=== PATIENT | female | born 1950 | race Caucasian/White ===

== ENCOUNTER 2016-10-11 09:52 | Observation (INO) | payer OTHER, MEDICAID ==
[~2016-10-11] VITALS: Ht 166.4 cm; Wt 86.7 kg
[~2016-10-11 09:52] MED LIST: CYCL-36 PO; FENT50DI TD; HYDR10TA16 PO; LEVO.05 PO; TAMS0.4C4 PO
[2016-10-11 09:55] VITALS: BP 151/91; PULSE 81; RESP 16; TEMP 97.5; O2SAT 95
[2016-10-11] MEDS ORDERED: SODIUM CHLOR 0.9% 1000 ML INJ 1,000 ML IV SCH (10:12)
[2016-10-11 10:15] VITALS: O2SAT 96
[2016-10-11] MEDS ORDERED: ONDANSETRON HCL 4 MG/2 ML VIAL IVP ONE (10:15)
[2016-10-11] MEDS ORDERED: PANTOPRAZOLE INJ 80 MG in SODIUM CHLORIDE 0.9% INJ 35 ML IV ONE (10:15)
[2016-10-11] MEDS ORDERED: SODIUM CHLORIDE 0.9% FLUSH 10 ML FLUSH IV FLUSH PRN ×2 (10:15→12:15)
[2016-10-11] MEDS ORDERED: PROP40TA3 PO (10:21)
[2016-10-11] MEDS ORDERED: CITA20TA4 PO (10:21)
[2016-10-11] MEDS ORDERED: CYCL1TAB29 PO (10:21)
[2016-10-11] MEDS ORDERED: PROM12.54 PO (10:21)
[2016-10-11] MEDS ORDERED: OXYC-433 PO (10:21)
[2016-10-11] MEDS ORDERED: ZETI10TA5 PO (10:21)
[2016-10-11] MEDS ORDERED: ZOCO40TA PO (10:21)
[2016-10-11] MEDS ORDERED: TRAZ50TA12 PO (10:21)
[2016-10-11] MEDS ORDERED: LEVO88TA2 PO (10:21)
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
[2016-10-11 10:44] LABS: AUTOMATED NEUTROPHIL # 8.5 TH/MM3 (1.8-7.7); BASOPHIL % 0.4 % (0.0-2.0); EOSINOPHIL # 0.1 TH/MM3 (0-0.4); EOSINOPHIL % 0.8 % (0.0-4.0); HEMATOCRIT 44.8 % (35.0-46.0); LYMPH % 12.7 % (9.0-44.0); LYMPHOCYTE # 1.4 TH/MM3 (1.0-4.8); MEAN CELL VOLUME 93.1 FL (80.0-100.0); MEAN CORPUSCULAR HEMOGLOBIN 31.3 PG (27.0-34.0); MEAN CORPUSCULAR HGB CONC 33.6 % (32.0-36.0); MONO % 7.5 % (0.0-8.0); NEUT % 78.6 % (16.0-70.0); PLATELET COUNT 318 TH/MM3 (150-450); RED BLOOD COUNT 4.81 MIL/MM3 (4.00-5.30); RED CELL DISTRIBUTION WIDTH 11.6 % (11.6-17.2); WHITE BLOOD COUNT 10.8 TH/MM3 (4.0-11.0)
[2016-10-11 10:45] LABS: HEMO FLAGS AUTO DIFF
[2016-10-11 10:52] LABS: CHLORIDE 105 MEQ/L (98-107); POTASSIUM 3.3 MEQ/L (3.5-5.1); SODIUM (NA) 141 MEQ/L (136-145)
[2016-10-11 10:56] LABS: BLOOD UREA NITROGEN 13 MG/DL (7-18)
[2016-10-11 10:57] LABS: APTT (PATIENT) 25.4 SEC (24.3-30.1); INTERNATIONAL NORMALIZED RATIO 0.9 RATIO; PROTHROMBIN TIME - PATIENT 10.1 SEC (9.8-11.6)
--- NOTE | 2016-10-11 10:57 | RADRPT ---
EXAM DATE/TIME: 10/11/2016 10:22 [facility] COMPARISON: No previous studies available for comparison. INDICATIONS : Vomiting, fever, mid upper abdomen,lower chest area pain, black stools MEDICAL HISTORY : Carcinoma, breast. SURGICAL HISTORY : lumpectomy ENCOUNTER: Initial ACUITY: 4 - 6 days PAIN SCORE: 10/10 LOCATION: Bilateral chest FINDINGS: The lungs are clear without infiltrate, nodule, or mass. There is no appreciable pleural effusion fo r technique. Heart and mediastinum are unremarkable. CONCLUSION: No acute cardiopulmonary disease. Emanuel Garcia MD on October 11, 2016 at 10:55 Board Certified Radiologist. This report was verified electronically.
[2016-10-11 10:58] LABS: ALT (GPT) 34 U/L (10-53)
[2016-10-11 10:59] LABS: AST (GOT) 22 U/L (15-37); GLOMERULAR FILTRATION RATE 71 ML/MIN (>89)
[2016-10-11 11:00] LABS: TOTAL BILIRUBIN ADULT 0.3 MG/DL (0.2-1.0)
[2016-10-11 11:01] LABS: ALKALINE PHOSPHATASE 84 U/L (45-117)
[2016-10-11 11:02] LABS: ANION GAP 9 MEQ/L (5-15); BICARBONATE 27.2 MEQ/L (21.0-32.0)
[2016-10-11 11:10] LABS: CREATINE KINASE 54 U/L (26-192)
--- NOTE | 2016-10-11 11:12 | RADRPT ---
EXAM DATE/TIME: 10/11/2016 10:44 [facility] COMPARISON: CT ABDOMEN & PELVIS W/O CONTRAST, January 28, 2014, 1:06. INDICATIONS : Black tarry stool and vomiting. ORAL CONTRAST: No oral contrast ingested. RADIATION DOSE: 19.98 CTDIvol (mGy) MEDICAL HISTORY : Hypertension. Chronic obstructive pulmonary disease. Anticoagulant therapy. SURGICAL HISTORY : Appendectomy. Hysterectomy. section. ENCOUNTER: Initial ACUITY: 4 - 6 days PAIN SCALE: 0/10 LOCATION: abdomen/pelvis TECHNIQUE: Volumetric scanning of the abdomen and pelvis was performed. Using automated exposure control and ad justment of the mA and/or kV according to patient size, radiation dose was kept as low as reasonably achievable to obtain optimal diagnostic quality images. DICOM format image data is available electro nically for review and comparison. FINDINGS: CT Abdomen: The spleen, pancreas, kidneys, adrenals are unremarkable. There is no evidence for any ap preciable pathological adenopathy, free fluid, or bowel obstruction. Tiny pericardial effusion is se en maximum thickness of 3 mm. The liver is extensively fatty without focal lesions or technique. Slig ht atelectasis and/or infiltrate is seen in right middle lobe and lingula. CT pelvis: There is no evidence for mass, abscess formation, or any significant adenopathy within the pelvis. Previously seen left UVJ stone is no longer seen. There are scattered diverticuli mainly in the sigmoid colon without definite signs of diverticulitis. CONCLUSION: Extensive fatty liver and slight atelectasis and/or infiltrate in right middle lobe a nd lingula . Emanuel Garcia MD on October 11, 2016 at 11:05 Board Certified Radiologist. This report was verified electronically.
[2016-10-11 11:14] LABS: SCAN/DIFF AUTO DIFF CONFIRMED
[2016-10-11] MEDS: PANTOPRAZOLE INJ 80 MG in SODIUM CHLORIDE 0.9% INJ 100 ML IV SCH (11:18)
[2016-10-11] MEDS ORDERED: HYDROmorphone HCL PF 1 MG/ML VIAL IV PUSH ONE (11:45)
[2016-10-11] MEDS ORDERED: LEVOFLOXACIN 750 MG PREMIX INJ 150 ML IV ONE (11:45)
[2016-10-11 12:11] VITALS: BP 144/74; PULSE 72; RESP 16; O2SAT 96
[2016-10-11] MEDS ORDERED: BISACODYL 10 MG SUPP RECTAL PRN (12:15)
[2016-10-11] MEDS ORDERED: NALOXONE HCL 0.4 MG/ML AMP IV PRN (12:15)
[2016-10-11] MEDS ORDERED: ONDANSETRON HCL 4 MG/2 ML VIAL IVP PRN (12:15)
[2016-10-11] MEDS ORDERED: MAGNESIUM HYDROXIDE SUSP 30 ML CUP PO PRN (12:15)
[2016-10-11] MEDS ORDERED: LACTULOSE SYRUP 20 GM/30 ML CUP PO PRN (12:15)
[2016-10-11] MEDS ORDERED: SENNOSIDES 8.6 MG TAB PO PRN (12:15)
[2016-10-11] MEDS: SODIUM CHLOR 0.9% 1000 ML INJ 1,000 ML IV SCH (12:57)
[2016-10-11 13:30] VITALS: BP_SYST 105; BP_SYST 113; BP_SYST 90; BP_DIAS 73; BP_DIAS 77; BP_DIAS 79; PULSE 69; RESP 19; TEMP 97.4; O2SAT 95
--- NOTE | 2016-10-11 13:37 | HHI.HP ---
[facility] Service [facility] Primary Care Physician Unknown Admission Diagnosis GI Bleed, Pneumonia Diagnoses: (1) Abdominal pain Diagnosis: Principal (2) Nausea & vomiting Diagnosis: Principal (3) Diarrhea in adult patient Diagnosis: Principal (4) Melena Diagnosis: Principal Chief Complaint: Nausea, vomiting, diarrhea Travel History International Travel<30 Days: No Contact w/Intl Traveler <30 Da: No Traveled to Known Affected Are: No History of Present Illness Written by Paolo Hall, acting as scribe for Dr. Scott on 10/11/16 at 13: 23. 66-year-old female with known history of hypertension, hyperlipidemia , coronary artery disease, history myocardial infarction, chronic obstructive pulmonary disease, chronic tobacco use, fibromyalgia, chronic pain, tremors, hypothyroidism, history of breast cancer who presented to hospital because of abdominal pain, nausea, vomiting, diarrhea and dark stools. Patient states that her symptoms started 5 days ago when she started developing abdominal pain located in the epigastric region and radiating bilaterally to the bilateral upper right and left quadrants. She indicates that she is started developing some swelling in her left upper abdomen that progressively got worse and did not go away. She started experiencing nausea, vomiting and diarrhea with black water. The patient took 2 Pepto-Bismol tablets that day and she did not improve. She states that every time that she drink anything or try to eat anything she had nausea vomiting. Every time she drinks something it come right back up. She denies any dysphagia, globus sensation or difficulty swallowing. Patient denies any recent antibiotic use, sick exposures. The patient does have history of fibromyalgia and chronic pain in which she indicates that she has been able to take her pain medication on a regular basis. The pain medication has not made her abdominal pain subsided. Approximately 34 months ago she did go to Dr. Jacob and had colonoscopy done where they removed approximately 10 polyps. She goes every 2 years for polypectomies. Patient does take aspirin on a daily basis. Patient was brought here by her family, she states that she really did not want to come to the hospital. However patient did have Hemoccult-positive stool and is indicated by family at the patient was very weak and was having difficulty ambulating. Because of those reasons it was recommended by the ER physician the patient be observed in the hospital for further recommendations management. Review of Systems Constitutional: COMPLAINS OF: Weight gain Gastrointestinal: COMPLAINS OF: Black stools, Diarrhea, Nausea, Vomiting Past Family Social History Past Medical History Hypertension Hyperlipidemia Hypothyroidism Chronic obstructive pulmonary disease Chronic tobacco use Fibromyalgia History of breast cancer History of CVA with left-sided weakness History of myocardial infarction Left-sided tremors Past Surgical History Breast lumpectomy/biopsy Cervical spine surgery Hysterectomy Appendectomy Cardiac catheterization 2005 with angiographically normal coronary arteries Reported Medications Reported Meds & Active Scripts Active Reported Levothyroxine (Levothyroxine Sodium) 88 Mcg Tab 88 Mcg PO DAILY Propranolol (Propranolol HCl) 40 Mg Tab 40 Mg PO Q12HR Zocor (Simvastatin) 40 Mg Tab 40 Mg PO DAILY Trazodone (Trazodone HCl) 50 Mg Tab 50 Mg PO HS Zetia (Ezetimibe) 10 Mg Tab 10 Mg PO DAILY Oxycodone-Acetaminophen 10-325 mg Tab 1 Tab PO Q6H PRN Flexeril (Cyclobenzaprine HCl) 10 Mg Tab 10 Mg PO BID Promethazine (Promethazine HCl) 12.5 Mg Tab 10 Mg PO Q6H PRN Citalopram (Citalopram Hydrobromide) 20 Mg Tab 20 Mg PO DAILY Allergies: Coded Allergies: Tetanus Toxoid (Verified Allergy, Severe, PT STATES SHE HAS "CONVULSIONS" , 10/11/16) Codeine (Verified Allergy, Mild, 10/11/16) Morphine (Verified Allergy, Mild, 10/11/16) Naprosyn (Verified Allergy, Mild, 10/11/16) Penicillin (Verified Allergy, Mild, 10/11/16) Family History Reviewed and significant for father having heart disease, requiring bypass surgery, first heart attack was in his age 70s he lived until 93 years old. Mother with breast cancer Social History Patient smokes a half a pack a cigarettes a day she has been smoking for 46 years. She drinks alcohol rarely. Denies any illicit drugs Physical Exam Vital Signs Vital Signs Date Time Temp Pulse Resp B/P Pulse Ox O2 Delivery O2 Flow Rate FiO2 10/11/16 12:11 72 16 144/74 96 Room Air 10/11/16 10:15 96 Room Air 10/11/16 09:55 97.5 81 16 151/91 95 Physical Exam GENERAL: Well-developed, well-nourished, in no acute distress. alert and orientated HEENT: Head is normocephalic without any lesions or masses noted. Facial features are symmetric. Eyes: Pupils equal round reactive to light. Extraocular muscles are intact. Conjunctivae were clear. Oropharyngeal: Pharynx without any erythema edema. Tongue is midline without deviation. Buccal mucosa is moist without any masses or lesions NECK: Supple without any masses. Trachea midline no deviation. No JVD, no bruits are appreciated CARDIAC: Regular rhythm, regular rate. S1/S2 are heard. No murmurs gallops or rubs. LUNGS: Clear to auscultation bilaterally. No wheeze, rhonchi or rales. No use of accessory muscles on inspiration or expiration. ABDOMEN: Soft, nontender. Nondistended. Bowel sounds heard in all 4 quadrants. No organomegaly or masses. Negative rebound, negative guarding EXTREMITIES: No edema, pulses are equal bilaterally. No cyanosis or clubbing NEUROLOGY: Mood and affect appear appropriate. Cranial nerves II through XII grossly intact. Muscle strength 5/5 in right upper and lower extremities, 3/5 in the left upper extremity.. Deep tendon reflexes are 2+ in upper and lower extremities bilaterally. Laboratory Laboratory Tests Test 10/11/16 10/11/16 10:35 12:45 White Blood Count 10.8 Red Blood Count 4.81 Hemoglobin 15.1 13.9 Hematocrit 44.8 Mean Corpuscular Volume 93.1 Mean Corpuscular Hemoglobin 31.3 Mean Corpuscular Hemoglobin 33.6 Concent Red Cell Distribution Width 11.6 Platelet Count 318 Mean Platelet Volume 8.9 Neutrophils (%) (Auto) 78.6 Lymphocytes (%) (Auto) 12.7 Monocytes (%) (Auto) 7.5 Eosinophils (%) (Auto) 0.8 Basophils (%) (Auto) 0.4 Neutrophils # (Auto) 8.5 Lymphocytes # (Auto) 1.4 Monocytes # (Auto) 0.8 Eosinophils # (Auto) 0.1 Basophils # (Auto) 0.0 CBC Comment AUTO DIFF Differential Comment AUTO DIFF CONFIRMED Prothrombin Time 10.1 Prothromb Time International 0.9 Ratio Activated Partial 25.4 Thromboplast Time Sodium Level 141 Potassium Level 3.3 Chloride Level 105 Carbon Dioxide Level 27.2 Anion Gap 9 Blood Urea Nitrogen 13 Creatinine 0.80 Estimat Glomerular Filtration 71 Rate Random Glucose 122 Calcium Level 9.1 Total Bilirubin 0.3 Aspartate Amino Transf 22 (AST/SGOT) Alanine Aminotransferase 34 (ALT/SGPT) Alkaline Phosphatase 84 Total Creatine Kinase 54 Troponin I LESS THAN 0.02 Total Protein 7.7 Albumin 3.8 Lipase 104 Blood Type A POSITIVE Antibody Screen NEGATIVE Blood Bank Comment Lactic Acid Level 0.9 Result Diagram: 10/11/16 1245 10/11/16 1035 Imaging Last Impressions Chest X-Ray 10/11/16 1012 Signed Impressions: Service Date/Time: Tuesday, October 11, 2016 10:22 - CONCLUSION: No acute cardiopulmonary disease. Emanuel Garcia MD Abdomen/Pelvis CT 10/11/16 1012 Signed Impressions: Service Date/Time: Tuesday, October 11, 2016 10:44 - CONCLUSION: Extensive fatty liver and slight atelectasis and/or infiltrate in right middle lobe and lingula . Emanuel Garcia MD Assessment and Plan Assessment and Plan //Abdominal pain with nausea, vomiting, diarrhea, melenic stool Heme positive stool in emergency department, Continue monitor hemoglobin and hematocrit Transfuse if hemoglobin below 8.0 Continue Protonix Continue Zofran Consult gastroenterology for recommendations //Chronic obstructive pulmonary disease Patient still smokes a half a pack a cigarettes a day Chest x-rays clear, abdominal CT indicates right lung atelectasis Counseled on cessation O2 supplementation maintain O2 sats greater than 92% Duo nebs as needed Incentive spirometry //Hypertension, hyperlipidemia Vital signs stable at this time Continue home medications //Hypothyroidism Check TSH Continue replacement therapy //Chronic pain, fibromyalgia Continue pain control //DVT prevention Sequential compression devices Avoid chemical prophylaxis secondary to heme positive stool Code Status Full code Discussed Condition With patient, ED physician. This note was transcribed by scribe [Paolo Hall]. I, Dr. Jhon Scott personally performed the history, physical exam, and medical decision making; and confirmed the accuracy of the information in the transcribed note. Authenticated by Dr. Jhon Scott on 10/11/16 at 15:51. Problem Qualifiers (1) Abdominal pain: Qualified Code: R10.13 - Epigastric pain (2) Nausea & vomiting: Qualified Code: R11.2 - Intractable vomiting with nausea, unspecified vomiting type Paolo Hall Oct 11, 2016 13:37 Jhon Scott MD Oct 11, 2016 15:52
[2016-10-11] MEDS ORDERED: RESP: ALBUTEROL 2.5 MG/IPRATROPIUM 0.5 MG NEB (PRN) NEB (13:45)
[2016-10-11 15:51] LABS: BLOOD, URINE NEG (NEG); GLUCOSE,URINE NEG (NEG); KETONE, URINE NEG (NEG); NITRITE,URINE NEG (NEG)
[2016-10-11 16:00] VITALS: BP 141/82; PULSE 74; RESP 19; TEMP 97.1; O2SAT 93
[2016-10-11] MEDS ORDERED: PEG (High)/E-LYTE SOLN 4000 ML BTL PO ONE (16:00)
[2016-10-11 16:09] LABS: METHOD OF COLLECTION CLEAN CATCH; URINE COLOR YELLOW (YELLW/STRAW)
[2016-10-11 16:11] LABS: BACTERIA, URINE MOD /hpf; COMMENT (UR) CULTURE INDICATED; COMMENT2 (UR) MUCOUS PRESENT; CULTURE IF INDICATED CULTURE INDICATED
--- NOTE | 2016-10-11 17:23 | PD.CONS ---
HPI History of Present Illness This is a 66 year old female who presented to the ER with abdominal pain, nausea , vomiting, diarrhea, and dark stools. Patient states her current symptoms have been present for 5 days. States she took Tylenol (2 tablets) approximately a week ago due to a headache, and states she has had abdominal discomfort since. Reports abdominal pain is located at epigastric area with radiation bilaterally to upper right and left quadrants. She states she is having swelling at her left upper quadrant. Patient did take 2 Pepto-Bismol tablets with no relief in her symptoms. Has nausea and vomiting with oral intake. Denies hematemesis. Followed by Dr. Jacob (GI). Had colonoscopy 3-4 months ago, removed approx 10 polyps, benign per patient. Never had EGD. States she goes every 2 years for polypectomies. Medical history significant for HTN, HLD, CAD, history of DE, COPD, chronic tobacco use, fibromyalgia, chronic pain, tremors, hypothyroidism, and history of breast cancer. Takes aspirin daily. Hemoccult positive stool in ER. (Sepideh Gibbs) PFSH Past Medical History Hypertension Hyperlipidemia Hypothyroidism Chronic obstructive pulmonary disease Chronic tobacco use Fibromyalgia History of breast cancer History of CVA with left-sided weakness History of myocardial infarction Left-sided tremors Past Surgical History Breast lumpectomy/biopsy Cervical spine surgery Hysterectomy Appendectomy Cardiac catheterization 2005 with angiographically normal coronary arteries ( Sepideh Gibbs) Coded Allergies: Tetanus Toxoid (Verified Allergy, Severe, PT STATES SHE HAS "CONVULSIONS" , 10/11/16) Codeine (Verified Allergy, Mild, 10/11/16) Morphine (Verified Allergy, Mild, 10/11/16) Naprosyn (Verified Allergy, Mild, 10/11/16) Penicillin (Verified Allergy, Mild, 10/11/16) Medications Current Medications Medications (Trade) Dose Ordered Sig/Eulalio Route PRN Reason Start Time Stop Time Status Last Admin Dose Admin Pantoprazole Sodium 80 mg/ Sodium Chloride 100 ml @ 10 mls/hr CONTINUOUS IV 10/11/16 10:15 10/11/16 11:18 Sodium Chloride (NS 1000 ml Inj) 1,000 ml @ 100 mls/hr Q10H IV 10/11/16 12:01 10/11/16 12:57 Sodium Chloride (NS Flush) 2 ml UNSCH PRN IV FLUSH FLUSH AFTER USING IV ACCESS 10/11/16 12:15 Sodium Chloride (NS Flush) 2 ml BID IV FLUSH 10/11/16 21:00 Ondansetron HCl (Zofran Inj) 4 mg Q6H PRN IVP NAUSEA OR VOMITING 10/11/16 12:15 10/11/16 15:14 Naloxone HCl (Narcan Inj) 0.4 mg UNSCH PRN IV SEE LABEL COMMENTS 10/11/16 12:15 Senna/Docusate Sodium (Shana-Colace) 1 tab BID PO 10/11/16 21:00 Magnesium Hydroxide (Milk Of Magnesia Liq) 30 ml Q12H PRN PO MILD - MODERATE CONSTIPATION 10/11/16 12:15 Sennosides (Senokot) 17.2 mg Q12H PRN PO MODERATE - SEVERE CONSTIPATION 10/11/16 12:15 Bisacodyl (Dulcolax Supp) 10 mg DAILY PRN RECTAL SEVERE CONSITIPATION 10/11/16 12:15 Lactulose (Lactulose Liq) 30 ml DAILY PRN PO SEVERE CONSITIPATION 10/11/16 12:15 Citalopram Hydrobromide (CeleXA) 20 mg DAILY PO 10/12/16 09:00 Levothyroxine Sodium (Synthroid) 88 mcg DAILY@06 PO 10/12/16 06:00 Propranolol HCl (Inderal) 40 mg Q12HR PO 10/11/16 21:00 Trazodone HCl (Desyrel) 50 mg HS PO 10/11/16 21:00 Pravastatin Sodium (Pravachol) 80 mg DAILY PO 10/12/16 09:00 Family History Father, heart disease, bypass surgery, first heart attack at 70s Mother, breast cancer Social History Tobacco, 1/2 PPD x 46 years ETOH, rare Illicit Drugs, denies (Sepideh Gibbs) Review of Systems Constitutional: COMPLAINS OF: Change in appetite, DENIES: Diaphoretic episodes , Fatigue, Fever, Weight gain, Weight loss, Chills, Dizziness, Night Sweats Endocrine: DENIES: Polydipsia, Polyuria Eyes: DENIES: Blurred vision, Photosensitivity, Double Vision Ears, nose, mouth, throat: DENIES: Hearing loss, Vertigo, Oral lesions, Throat pain, Hoarseness Respiratory: DENIES: Cough, Wheezing, Hemoptysis, Sputum production, Shortness of breath Cardiovascular: DENIES: Chest pain, Palpitations, Syncope, Lower Extremity Edema, Orthopnea, Claudication Gastrointestinal: COMPLAINS OF: Abdominal pain, Black stools, Diarrhea, Nausea , Vomiting, Swelling of Abdomen, DENIES: Bloody stools, Constipation, Difficulty Swallowing, Anorexia, Odynophagia, Heartburn, Hematemesis Genitourinary: DENIES: Urinary frequency, Urinary incontinence, Urgency, Hematuria, Dysuria, Nocturia Musculoskeletal: DENIES: Joint pain, Muscle aches, Stiffness, Joint Swelling, Back pain, Neck pain Integumentary: DENIES: Abnormal pigmentation, Nail changes, Pruritus, Rash, Jaundice Hematologic/lymphatic: DENIES: Bruising, Lymphadenopathy Immunologic/allergic: DENIES: Eczema, Urticaria Neurologic: DENIES: Abnormal gait, Headache, Localized weakness, Paresthesias Psychiatric: DENIES: Anxiety, Confusion, Mood changes, Depression, Agitation, Suicidal Ideation (Sepideh Gibbs) GI Exam Vitals I&O Vital Signs Date Time Temp Pulse Resp B/P Pulse Ox O2 Delivery O2 Flow Rate FiO2 10/11/16 16:00 97.1 74 19 141/82 93 10/11/16 13:30 97.4 69 19 105/77 95 113/79 90/73 10/11/16 12:11 72 16 144/74 96 Room Air 10/11/16 10:15 96 Room Air 10/11/16 09:55 97.5 81 16 151/91 95 Imaging Last Impressions Chest X-Ray 10/11/16 1012 Signed Impressions: Service Date/Time: Tuesday, October 11, 2016 10:22 - CONCLUSION: No acute cardiopulmonary disease. Emanuel Garcia MD Abdomen/Pelvis CT 10/11/16 1012 Signed Impressions: Service Date/Time: Tuesday, October 11, 2016 10:44 - CONCLUSION: Extensive fatty liver and slight atelectasis and/or infiltrate in right middle lobe and lingula . Emanuel Garcia MD Laboratory Test 10/11/16 10/11/16 10/11/16 10/11/16 10:35 12:45 13:37 15:15 White Blood Count 10.8 TH/MM3 Red Blood Count 4.81 MIL/MM3 Hemoglobin 15.1 GM/DL 13.9 GM/DL Hematocrit 44.8 % Mean Corpuscular Volume 93.1 FL Mean Corpuscular Hemoglobin 31.3 PG Mean Corpuscular Hemoglobin 33.6 % Concent Red Cell Distribution Width 11.6 % Platelet Count 318 TH/MM3 Mean Platelet Volume 8.9 FL Neutrophils (%) (Auto) 78.6 % Lymphocytes (%) (Auto) 12.7 % Monocytes (%) (Auto) 7.5 % Eosinophils (%) (Auto) 0.8 % Basophils (%) (Auto) 0.4 % Neutrophils # (Auto) 8.5 TH/MM3 Lymphocytes # (Auto) 1.4 TH/MM3 Monocytes # (Auto) 0.8 TH/MM3 Eosinophils # (Auto) 0.1 TH/MM3 Basophils # (Auto) 0.0 TH/MM3 CBC Comment AUTO DIFF Differential Comment AUTO DIFF CONFIRMED Prothrombin Time 10.1 SEC Prothromb Time International 0.9 RATIO Ratio Activated Partial 25.4 SEC Thromboplast Time Sodium Level 141 MEQ/L Potassium Level 3.3 MEQ/L Chloride Level 105 MEQ/L Carbon Dioxide Level 27.2 MEQ/L Anion Gap 9 MEQ/L Blood Urea Nitrogen 13 MG/DL Creatinine 0.80 MG/DL Estimat Glomerular Filtration 71 ML/MIN Rate Random Glucose 122 MG/DL Calcium Level 9.1 MG/DL Total Bilirubin 0.3 MG/DL Aspartate Amino Transf 22 U/L (AST/SGOT) Alanine Aminotransferase 34 U/L (ALT/SGPT) Alkaline Phosphatase 84 U/L Total Creatine Kinase 54 U/L Troponin I LESS THAN 0.02 NG/ML Total Protein 7.7 GM/DL Albumin 3.8 GM/DL Lipase 104 U/L Blood Type A POSITIVE Antibody Screen NEGATIVE Blood Bank Comment Lactic Acid Level 0.9 mmol/L Thyroid Stimulating Hormone 2.430 uIU/ML 3rd Gen Urine Collection Type CLEAN CATCH Urine Color YELLOW Urine Turbidity MOD Urine pH 6.0 Urine Specific [place] 1.032 Urine Protein TRACE mg/dL Urine Glucose (UA) NEG mg/dL Urine Ketones NEG mg/dL Urine Occult Blood NEG Urine Nitrite NEG Urine Bilirubin NEG Urine Leukocyte Esterase NEG Urine WBC 3-5 /hpf Urine Squamous Epithelial 6-8 /hpf Cells Urine Bacteria MOD /hpf Microscopic Urinalysis Comment CULTURE INDICATED Urine Collection Time 1515 Date/Time Procedure Status Source Growth 7/23/17 15:15 Urine Culture Received Urine Clean Catch Pending Physical Examination HEENT: PERRLA; normocephalic; atraumatic; no jaundice. NECK: Neck is supple, no JVD, no lymphadenopathy. CHEST: CTA CARDIAC: RRR ABDOMEN: Soft, nondistended, tender at epigastric region and LUQ; no hepatosplenomegaly; bowel sounds x 4 quadrants EXTREMITIES: No clubbing, cyanosis, or edema. SKIN: Normal; no rash; no jaundice. DENTAL HYGIENE ADMINISTRATIVE ASSISTANT: No focal deficits; alert and oriented times three. (Sepideh Gibbs) Assessment and Plan Plan ASSESSMENT GIB, Hemoccult positive stools. HH stable, 15.1/44.8 Abdominal pain with nausea, vomiting, diarrhea, melenic stool, HH stable. Heme positive stool. Never had EGD. Colonoscopy 3-[address] Jacob, removed 10 polyps, benign per patient. Protonix. Zofran. Abdomen/ Pelvis CT 10/11/16--Extensive fatty liver and slight atelectasis and/or infiltrate in right middle lobe and lingula Chronic obstructive pulmonary disease, smokes a 1/2 PPD. Chest X-Ray 10/11/16-- No acute cardiopulmonary disease. Abdomen/Pelvis CT as above. PLAN -EGD/Colonoscopy -Obtain consents -Clear liquid diet -NPO at midnight -Continue Protonix -Monitor HH, transfuse as necessary -Anti emetics -Supportive care -Further recommendations to follow based on results above Patient seen and examined by Dr. Thomas and myself and this note is written on her behalf (Sepideh Gibbs) Physician Comments seen, examined agree with above (Ingris Thomas MD) Sepideh Gibbs Oct 11, 2016 17:23 Ingris Thomas MD Oct 11, 2016 18:34
--- NOTE | 2016-10-11 18:30 | EKG ---
Date Performed: 10/11/2016 Time Performed: 10:28:25 PTAGE: 66 years EKG: Sinus rhythm ST DEVIATION AND MODERATE T-WAVE ABNORMALITY, CONSIDER ANTERIOR ISCHEMIA ABNORMAL ECG PREVIOUS TRACING : 01/27/2014 22.53 Compared to prior tracing no significant change DOCTOR: Gordo Hernandez Interpretating Date/Time 10/11/2016 18:29:49
[2016-10-11 20:15] VITALS: BP_SYST 130; BP_SYST 134; BP_SYST 162; BP_DIAS 100; BP_DIAS 85; BP_DIAS 92; PULSE 88; RESP 18; TEMP 97.2; O2SAT 94
[2016-10-11] MEDS: traZODone HCL 50 MG TAB PO SCH (21:00)
[2016-10-11] MEDS: DOCUSATE SODIUM 50 MG/SENNA 8.6 MG TAB PO SCH (21:00)
[2016-10-11] MEDS: SODIUM CHLORIDE 0.9% FLUSH 10 ML FLUSH IV FLUSH SCH (23:05)
[2016-10-11] MEDS: PROPRANOLOL HCL 40 MG TAB PO SCH (23:05)
[2016-10-12 00:15] VITALS: BP 125/73; PULSE 67; RESP 20; TEMP 98.1; O2SAT 96
[2016-10-12] MEDS: SODIUM CHLOR 0.9% 1000 ML INJ 1,000 ML IV SCH ×3 (01:27→17:01)
[2016-10-12] MEDS ORDERED: METOPROLOL TARTRATE 25 MG TAB PO PRN (04:00)
[2016-10-12] MEDS ORDERED: LACTATED RINGER'S 1000 ML IV PRN (04:00)
[2016-10-12] MEDS: PANTOPRAZOLE INJ 80 MG in SODIUM CHLORIDE 0.9% INJ 100 ML IV SCH ×2 (04:37→18:14)
[2016-10-12 06:10] VITALS: BP 142/87; PULSE 60; RESP 20; TEMP 96.4; O2SAT 94
[2016-10-12] MEDS: LEVOTHYROXINE SODIUM 88 MCG TAB PO SCH (06:12)
[2016-10-12] MEDS: PROPRANOLOL HCL 40 MG TAB PO SCH ×2 (06:12→20:59)
[2016-10-12 06:54] LABS: AUTOMATED NEUTROPHIL # 5.5 TH/MM3 (1.8-7.7); BASOPHIL # 0.1 TH/MM3 (0-0.2); BASOPHIL % 0.8 % (0.0-2.0); EOSINOPHIL # 0.1 TH/MM3 (0-0.4); EOSINOPHIL % 1.4 % (0.0-4.0); HEMATOCRIT 37.5 % (35.0-46.0); HEMO FLAGS DIFF FINAL; LYMPH % 20.2 % (9.0-44.0); LYMPHOCYTE # 1.6 TH/MM3 (1.0-4.8); MEAN CELL VOLUME 94.1 FL (80.0-100.0); MEAN CORPUSCULAR HEMOGLOBIN 31.5 PG (27.0-34.0); MEAN CORPUSCULAR HGB CONC 33.5 % (32.0-36.0); MONO % 9.1 % (0.0-8.0); NEUT % 68.5 % (16.0-70.0); RED BLOOD COUNT 3.98 MIL/MM3 (4.00-5.30); RED CELL DISTRIBUTION WIDTH 12.1 % (11.6-17.2)
[2016-10-12 06:59] LABS: CHLORIDE 108 MEQ/L (98-107); POTASSIUM 3.2 MEQ/L (3.5-5.1); SODIUM (NA) 143 MEQ/L (136-145)
[2016-10-12 07:00] LABS: C. DIFF EPI 027 PRESUMPTIVE NEGATIVE (NEGATIVE); C. DIFF TOXIN PCR NEGATIVE (NEGATIVE)
[2016-10-12 07:22] LABS: PLATELET COUNT 149 TH/MM3 (150-450)
[2016-10-12 07:32] LABS: ALKALINE PHOSPHATASE 69 U/L (45-117); ALT (GPT) 25 U/L (10-53); ANION GAP 9 MEQ/L (5-15); AST (GOT) 24 U/L (15-37); BICARBONATE 26.2 MEQ/L (21.0-32.0); BLOOD UREA NITROGEN 12 MG/DL (7-18); GLOMERULAR FILTRATION RATE 79 ML/MIN (>89); TOTAL BILIRUBIN ADULT 0.4 MG/DL (0.2-1.0)
[2016-10-12] MEDS ORDERED: PROPOFOL 200 MG/20 ML AMP IV ONE (08:41)
[2016-10-12] MEDS: SODIUM CHLORIDE 0.9% FLUSH 10 ML FLUSH IV FLUSH SCH ×2 (09:00→20:59)
[2016-10-12] MEDS: DOCUSATE SODIUM 50 MG/SENNA 8.6 MG TAB PO SCH ×2 (09:00→20:59)
--- NOTE | 2016-10-12 09:08 | GIPROC ---
[address], [address] COLONOSCOPY PROCEDURE REPORT EXAM DATE: 10/12/2016 PATIENT NAME: Cece Hernández MR #: [id number] BIRTHDATE: 1950 ENDOSCOPIST: Ana Rosa Barker MD ORDER #: [id number] [employer]ANGLE [employer]ESS CATCHER: Gt Hopper and Rico Watters STATUS: inpatient INDICATIONS: The patient is a 66 yr old female here for a colonoscopy due to diarrhea and high risk patient with personal history of colonic polyps PROCEDURE PERFORMED: Colonoscopy with biopsy Colonoscopy with polypectomy MEDICATIONS: None and Per Anesthesia. PREP QUALITY: fair ESTIMATED BLOOD LOSS: None CONSENT: The patient understands the risks and benefits of the procedure and understands that these risks include, but are not limited to: sedation, allergic reaction, infection, perforation and/or bleeding. Alternative means of evaluation and treatment include, among others: physical exam, x-rays, and/or surgical intervention. The patient elects to proceed with this endoscopic procedure. medical equipment was checked for proper function. Hand hygiene and appropriate measures for infection prevention was taken. After the risks, benefits and alternatives of the procedure were thoroughly explained, Informed consent was verified, confirmed and timeout was successfully executed by the treatment team. A digital exam revealed no abnormalities of the rectum The Pentax EC-[id number] endoscope was introduced through the anus and advanced to the cecum, which was identified by both the appendix and ileocecal valve. The instrument was then slowly withdrawn as the colon was fully examined. COLON FINDINGS: 3 polyps in the descending colon removed snare. One polyp in sigmoid removed by snare. Diverticolosis in sigmoid. The colon mucosa was otherwise normal. Multiple biopsies were performed. Bx for diarrhea from cecum and sigmoid. Retroflexed views revealed internal hemorrhoids and Retroflexed views revealed small internal hemorrhoids The scope was then completely withdrawn from the patient and the procedure terminated. ADVERSE EVENTS: There were no complications. IMPRESSIONS: 1. 3 polyps in the descending colon removed snare 2. One polyp in sigmoid removed by snare 3. Diverticolosis in sigmoid 4. The colon mucosa was otherwise normal; multiple biopsies were performed 5. Bx for diarrhea from cecum and sigmoid 6. Retroflexed views revealed internal hemorrhoids 7. Retroflexed views revealed small internal hemorrhoids 8. Revealed no abnormalities of the rectum RECOMMENDATIONS: 1. Await biopsy results. Biopsy results will not be ready for 7-10 days. If you don't hear from us in two weeks, call our office for results. 2. High fiber diet RECALL: Return 2 years Colonoscopy Ana Rosa Barker MD eSigned: Ana Rosa Barker MD 10/12/2016 9:07 AM cc: PATIENT NAME: Cece Hernández Hima MR#: [id number]
--- NOTE | 2016-10-12 09:14 | GIPROC ---
[address], [address] EGD PROCEDURE REPORT EXAM DATE: 10/12/2016 PATIENT NAME: Cece Hernández MR #: [id number] BIRTHDATE: 1950 ATTENDING: Ana Rosa Barker MD ORDER #: [id number] SEASONER HAND: tG Hopper and Rico Watters STATUS: inpatient INDICATIONS: The patient is a 66 yr old female here for an EGD due to chronic diarrhea and vomiting PROCEDURE PERFORMED: EGD w/ biopsy MEDICATIONS: None and Per Anesthesia. TOPICAL ANESTHETIC: none CONSENT: The patient understands the risks and benefits of the procedure and understands that these risks include, but are not limited to: sedation, allergic reaction, infection, perforation and/or bleeding. Alternative means of evaluation and treatment include, among others: physical exam, x-rays, and/or surgical intervention. The patient elects to proceed with this endoscopic procedure. medical equipment was checked for proper function. Hand hygiene and appropriate measures for infection prevention was taken. After the risks, benefits and alternatives of the procedure were thoroughly explained, Informed consent was verified, confirmed and timeout was successfully executed by the treatment team. The patient was anesthetized with topical anesthesia and the EC-[id number] (Pedi C) endoscope was introduced through the mouth and advanced to the second portion of the duodenum. Retroflexed views revealed no abnormalities The gastroscope was then slowly withdrawn and removed. Gastric ulcer in antrum Bx done. Gastritis mostly in antrum. Noduler mucosa in bulb Bx done. Irrgular Z line, mild esophagitis Bx. ADVERSE EVENTS: There were no complications. IMPRESSIONS: 1. Gastric ulcer in antrum Bx done 2. Gastritis mostly in antrum 3. Noduler mucosa in bulb Bx done 4. Irrgular Z line, mild esophagitis Bx 5. Retroflexed views revealed no abnormalities RECOMMENDATIONS: 1. Await biopsy results. Biopsy results will not be ready for 7-10 days. If you don't hear from us in two weeks, call our office for biopsy results. 2. Anti-reflux regimen 3. Avoid NSAIDS 4. Protonix 40mg Q AM PATIENT CONDITION: stable DISPOSITION: Inpatient REPEAT EXAM: Return 1 month EGD Ana Rosa Barker MD eSigned: Ana Rosa Barker MD 10/12/2016 9:13 AM cc: PATIENT NAME: Cece Hernández Hima MR#: [id number]
--- NOTE | 2016-10-12 09:20 | HHI.GIFU ---
Subjective Remarks still having abdominal discomfort, some nausea, no diarrhea Objective Vitals I&O Vital Signs Date Time Temp Pulse Resp B/P Pulse Ox O2 Delivery O2 Flow Rate FiO2 10/12/16 06:10 96.4 60 20 142/87 94 10/12/16 00:15 98.1 67 20 125/73 96 10/11/16 20:15 97.2 88 18 162/100 94 134/85 130/92 10/11/16 16:00 97.1 74 19 141/82 93 10/11/16 13:30 97.4 69 19 105/77 95 113/79 90/73 10/11/16 12:11 72 16 144/74 96 Room Air 10/11/16 10:15 96 Room Air 10/11/16 09:55 97.5 81 16 151/91 95 I/O 10/11/16 10/11/16 10/11/16 10/12/16 10/12/16 10/12/16 07:00 15:00 23:00 07:00 15:00 23:00 Intake Total 2400 ml 0 ml Balance 2400 ml 0 ml Intake Oral 1800 ml 0 ml IV Total 600 ml # Voids 6 1 # Bowel Movements 13 0 Laboratory Laboratory Tests Test 10/11/16 10/11/16 10/11/16 10/11/16 10:35 12:45 13:37 15:15 White Blood Count 10.8 Red Blood Count 4.81 Hemoglobin 15.1 13.9 Hematocrit 44.8 Mean Corpuscular Volume 93.1 Mean Corpuscular Hemoglobin 31.3 Mean Corpuscular Hemoglobin 33.6 Concent Red Cell Distribution Width 11.6 Platelet Count 318 Mean Platelet Volume 8.9 Neutrophils (%) (Auto) 78.6 Lymphocytes (%) (Auto) 12.7 Monocytes (%) (Auto) 7.5 Eosinophils (%) (Auto) 0.8 Basophils (%) (Auto) 0.4 Neutrophils # (Auto) 8.5 Lymphocytes # (Auto) 1.4 Monocytes # (Auto) 0.8 Eosinophils # (Auto) 0.1 Basophils # (Auto) 0.0 CBC Comment AUTO DIFF Differential Comment AUTO DIFF CONFIRMED Prothrombin Time 10.1 Prothromb Time International 0.9 Ratio Activated Partial 25.4 Thromboplast Time Sodium Level 141 Potassium Level 3.3 Chloride Level 105 Carbon Dioxide Level 27.2 Anion Gap 9 Blood Urea Nitrogen 13 Creatinine 0.80 Estimat Glomerular Filtration 71 Rate Random Glucose 122 Calcium Level 9.1 Total Bilirubin 0.3 Aspartate Amino Transf 22 (AST/SGOT) Alanine Aminotransferase 34 (ALT/SGPT) Alkaline Phosphatase 84 Total Creatine Kinase 54 Troponin I LESS THAN 0.02 Total Protein 7.7 Albumin 3.8 Lipase 104 Blood Type A POSITIVE Antibody Screen NEGATIVE Blood Bank Comment Lactic Acid Level 0.9 Thyroid Stimulating Hormone 2.430 3rd Gen Urine Collection Type CLEAN CATCH Urine Color YELLOW Urine Turbidity MOD Urine pH 6.[address] 1.032 Urine Protein TRACE Urine Glucose (UA) NEG Urine Ketones NEG Urine Occult Blood NEG Urine Nitrite NEG Urine Bilirubin NEG Urine Leukocyte Esterase NEG Urine WBC 3-5 Urine Squamous Epithelial 6-8 Cells Urine Bacteria MOD Microscopic Urinalysis Comment CULTURE INDICATED Urine Collection Time 1515 Test 10/11/16 10/11/16 10/12/16 21:20 21:30 05:30 Stool C. difficile Toxin (PCR) NEGATIVE Stl C. difficile Toxin PRESUMPTIVE Epiderm 027 NEGATIVE Hemoglobin 12.6 12.6 White Blood Count 8.0 Red Blood Count 3.98 Hematocrit 37.5 Mean Corpuscular Volume 94.1 Mean Corpuscular Hemoglobin 31.5 Mean Corpuscular Hemoglobin 33.5 Concent Red Cell Distribution Width 12.1 Platelet Count 149 Mean Platelet Volume 10.0 Neutrophils (%) (Auto) 68.5 Lymphocytes (%) (Auto) 20.2 Monocytes (%) (Auto) 9.1 Eosinophils (%) (Auto) 1.4 Basophils (%) (Auto) 0.8 Neutrophils # (Auto) 5.5 Lymphocytes # (Auto) 1.6 Monocytes # (Auto) 0.7 Eosinophils # (Auto) 0.1 Basophils # (Auto) 0.1 CBC Comment DIFF FINAL Differential Comment Sodium Level 143 Potassium Level 3.2 Chloride Level 108 Carbon Dioxide Level 26.2 Anion Gap 9 Blood Urea Nitrogen 12 Creatinine 0.73 Estimat Glomerular Filtration 79 Rate Random Glucose 87 Calcium Level 7.9 Total Bilirubin 0.4 Aspartate Amino Transf 24 (AST/SGOT) Alanine Aminotransferase 25 (ALT/SGPT) Alkaline Phosphatase 69 Total Protein 6.0 Albumin 3.0 Date/Time Procedure Status Source Growth 10/11/16 21:20 Received Stool Stool Pending 10/11/16 15:15 Urine Culture Received Urine Clean Catch Pending Physical Exam HEENT: Pupils round and reactive to light; normocephalic; atraumatic; no jaundice. Throat is clear. NECK: Neck is supple, no JVD, no lymphadenopathy. CHEST: Chest is clear to auscultation and percussion. CARDIAC: Regular rate and rhythm with no murmur gallop or rubs. ABDOMEN: Soft, nondistended, mild tenderness in epigastric area; no hepatosplenomegaly; bowel sounds are present in all four quadrants. EXTREMITIES: No clubbing, cyanosis, or edema. SKIN: Normal; no rash; no jaundice. 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 Assessment and Plan Plan ASSESSMENT GIB, Hemoccult positive stools. HH stable, 15.1/44.8 Abdominal pain with nausea, vomiting, diarrhea, melenic stool, HH stable. Heme positive stool. Never had EGD. Colonoscopy 3-[address] Jacob, removed 10 polyps, benign per patient. Protonix. Zofran. Abdomen/ Pelvis CT 10/11/16--Extensive fatty liver and slight atelectasis and/or infiltrate in right middle lobe and lingula Chronic obstructive pulmonary disease, smokes a 1/2 PPD. Chest X-Ray 10/11/16-- No acute cardiopulmonary disease. Abdomen/Pelvis CT as above. 10-12-16 EGD showed esophagitis Gastric ulcer in the antrum, colon showed multiple polyps and diverticulosis PLAN -regular diet -Continue Protonix -Monitor HH, transfuse as necessary -Anti emetics -Supportive care -Further recommendations to follow based on results above FU Bx - EGD in 1 month -no NSAIDs Ana Rosa Barker MD Oct 12, 2016 09:20
[2016-10-12] MEDS ORDERED: POTASSIUM CHLORIDE 10 MEQ CONTROLLED RELEASE TAB PO ONE (10:00)
[2016-10-12] MEDS: CITALOPRAM HYDROBROMIDE 20 MG TAB PO SCH (11:18)
[2016-10-12] MEDS: PRAVASTATIN SOD 40 MG TAB PO SCH (11:18)
[2016-10-12 12:00] VITALS: BP_SYST 122; BP_SYST 128; BP_DIAS 72; BP_DIAS 75; PULSE 64; RESP 18; TEMP 97.2; O2SAT 95
[2016-10-12] MEDS ORDERED: MAGNESIUM SULFATE 1 GM PREMIX 100 ML IV ONE (12:00)
--- NOTE | 2016-10-12 15:24 | HHI.PR ---
Subjective Remarks Patient seen this morning around 11 AM, after GI procedure. Says abdominal pain worse. Denies any chest pain or shortness of breath. Later in the day, patient still feeling uncomfortable, not ready to go home. Objective Vital Signs Date Time Temp Pulse Resp B/P Pulse Ox O2 Delivery O2 Flow Rate FiO2 10/12/16 12:00 97.2 64 18 128/72 95 122/75 10/12/16 09:50 61 14 138/64 96 Nasal Cannula 2 10/12/16 09:35 97.5 64 14 146/70 92 Nasal Cannula 2 10/12/16 09:20 59 14 121/73 98 Nasal Cannula 2 10/12/16 09:17 98.2 59 14 96/67 100 Nasal Cannula 2 10/12/16 09:17 98.2 59 14 96/67 100 10/12/16 09:17 Nasal Cannula 2 10/12/16 06:10 96.4 60 20 142/87 94 10/12/16 00:15 98.1 67 20 125/73 96 10/11/16 20:15 97.2 88 18 162/100 94 134/85 130/92 10/11/16 16:00 97.1 74 19 141/82 93 I/O 10/11/16 10/11/16 10/11/16 10/12/16 10/12/16 10/12/16 07:00 15:00 23:00 07:00 15:00 23:00 Intake Total 2400 ml 610 ml Balance 2400 ml 610 ml Intake Oral 1800 ml 60 ml IV Total 600 ml Other 550 ml # Voids 6 1 # Bowel Movements 13 0 Result Diagram: 10/12/16 1150 10/12/16 0530 Objective Remarks GENERAL: patient lying in bed. Appears uncomfortable. Alert and oriented 3. SKIN: Warm and dry. HEAD: Normocephalic. EYES: No scleral icterus. No injection or drainage. NECK: Supple, trachea midline. No JVD CARDIOVASCULAR: Regular rate and rhythm without murmurs, gallops, or rubs. RESPIRATORY: Breath sounds equal bilaterally. No accessory muscle use. GASTROINTESTINAL: Abdomen distended, hyperresonant. positive bowel sounds. Nontender. No rebound or guarding. MUSCULOSKELETAL: No cyanosis, or edema. BACK: Nontender without obvious deformity. No CVA tenderness. A/P Assessment and Plan //Abdominal pain with nausea, vomiting, diarrhea, melenic stool Heme positive stool in emergency department, Continue monitor hemoglobin and hematocrit Transfuse if hemoglobin below 8.0 Continue Protonix Continue Zofran Gastroenterology following. EGD performed with gastric ulcer. Colonoscopy was performed with polyps. Results pending. //Chronic obstructive pulmonary disease Patient still smokes a half a pack a cigarettes a day Chest x-rays clear, abdominal CT indicates right lung atelectasis Counseled on cessation O2 supplementation maintain O2 sats greater than 92% Duo nebs as needed Continue Incentive spirometry //Hypertension, hyperlipidemia Vital signs stable at this time Continue home medications //Hypokalemia. Acute. Replaced. Monitor //Hypothyroidism TSH wnl Continue replacement therapy //Chronic pain, fibromyalgia Continue pain control //DVT prevention Sequential compression devices Avoid chemical prophylaxis secondary to heme positive stool Discharge Planning likely discharge home tomorrow morning. -Biopsy results pending. Jhon Scott MD Oct 12, 2016 15:24
[2016-10-12 16:00] VITALS: BP 133/70; PULSE 68; RESP 18; TEMP 97.6; O2SAT 97
[2016-10-12 20:00] VITALS: BP 154/95; PULSE 82; RESP 20; TEMP 96.2; O2SAT 97
[2016-10-12] MEDS: traZODone HCL 50 MG TAB PO SCH (20:59)
[2016-10-13] VITALS: BP 101/64; PULSE 65; RESP 16; TEMP 96.5; O2SAT 98
[2016-10-13] MEDS: SODIUM CHLOR 0.9% 1000 ML INJ 1,000 ML IV SCH (00:35)
[2016-10-13] MEDS: LEVOTHYROXINE SODIUM 88 MCG TAB PO SCH (04:48)
[2016-10-13] MEDS: PANTOPRAZOLE INJ 80 MG in SODIUM CHLORIDE 0.9% INJ 100 ML IV SCH (04:49)
[2016-10-13 05:54] LABS: AUTOMATED NEUTROPHIL # 3.4 TH/MM3 (1.8-7.7); BASOPHIL % 0.7 % (0.0-2.0); EOSINOPHIL # 0.2 TH/MM3 (0-0.4); EOSINOPHIL % 3.1 % (0.0-4.0); HEMO FLAGS DIFF FINAL; LYMPH % 28.8 % (9.0-44.0); LYMPHOCYTE # 1.7 TH/MM3 (1.0-4.8); MEAN CELL VOLUME 94.1 FL (80.0-100.0); MEAN CORPUSCULAR HEMOGLOBIN 31.1 PG (27.0-34.0); MEAN CORPUSCULAR HGB CONC 33.1 % (32.0-36.0); MONO % 9.4 % (0.0-8.0); PLATELET COUNT 201 TH/MM3 (150-450); RED BLOOD COUNT 3.83 MIL/MM3 (4.00-5.30); WHITE BLOOD COUNT 5.9 TH/MM3 (4.0-11.0)
[2016-10-13 05:57] LABS: POTASSIUM 3.4 MEQ/L (3.5-5.1)
[2016-10-13 07:56] VITALS: BP 130/69; PULSE 56; RESP 20; TEMP 96.8; O2SAT 96
[2016-10-13] MEDS: SODIUM CHLORIDE 0.9% FLUSH 10 ML FLUSH IV FLUSH SCH (08:42)
[2016-10-13] MEDS ORDERED: PANTOPRAZOLE SOD 40 MG DELAYED RELEASE TAB PO SCH (09:00)
[2016-10-13] MEDS: PROPRANOLOL HCL 40 MG TAB PO SCH (09:00)
[2016-10-13] MEDS ORDERED: POTASSIUM CHLORIDE 25 MEQ EFFERVESCENT TAB PO ONE (09:00)
[2016-10-13] MEDS ORDERED: 1/2 NS + KCL 20 MEQ INJ 1,000 ML IV SCH (09:00)
--- NOTE | 2016-10-13 09:22 | HHI.GIFU ---
Subjective Remarks feels well, tolerating diet, no abdominal pain Objective Vitals I&O Vital Signs Date Time Temp Pulse Resp B/P Pulse Ox O2 Delivery O2 Flow Rate FiO2 10/13/16 07:56 96.8 56 20 130/69 96 10/13/16 00:00 96.5 65 16 101/64 98 10/12/16 20:00 96.2 82 20 154/95 97 10/12/16 16:00 97.6 68 18 133/70 97 10/12/16 12:00 97.2 64 18 128/72 95 122/75 10/12/16 09:50 61 14 138/64 96 Nasal Cannula 2 10/12/16 09:35 97.5 64 14 146/70 92 Nasal Cannula 2 I/O 10/12/16 10/12/16 10/12/16 10/13/16 10/13/16 10/13/16 07:00 15:00 23:00 07:00 15:00 23:00 Intake Total 2400 ml 610 ml 840 ml 240 ml Balance 2400 ml 610 ml 840 ml 240 ml Intake Oral 1800 ml 60 ml 840 ml 240 ml IV Total 600 ml Other 550 ml # Voids 6 1 1 2 # Bowel Movements 13 0 0 0 Laboratory Laboratory Tests Test 10/12/16 10/12/16 10/12/16 10/13/16 11:50 20:12 23:00 04:44 Hemoglobin 12.9 12.6 11.9 Nasal Screen MRSA (PCR) MRSA NOT DETECTED White Blood Count 5.9 Red Blood Count 3.83 Hematocrit 36.0 Mean Corpuscular Volume 94.1 Mean Corpuscular Hemoglobin 31.1 Mean Corpuscular Hemoglobin 33.1 Concent Red Cell Distribution Width 12.0 Platelet Count 201 Mean Platelet Volume 9.7 Neutrophils (%) (Auto) 58.0 Lymphocytes (%) (Auto) 28.8 Monocytes (%) (Auto) 9.4 Eosinophils (%) (Auto) 3.1 Basophils (%) (Auto) 0.7 Neutrophils # (Auto) 3.4 Lymphocytes # (Auto) 1.7 Monocytes # (Auto) 0.6 Eosinophils # (Auto) 0.2 Basophils # (Auto) 0.0 CBC Comment DIFF FINAL Differential Comment Sodium Level 146 Potassium Level 3.4 Chloride Level 115 Carbon Dioxide Level 25.0 Anion Gap 6 Blood Urea Nitrogen 8 Creatinine 0.74 Estimat Glomerular Filtration 78 Rate Random Glucose 91 Calcium Level 7.9 Phosphorus Level 3.2 Magnesium Level 2.0 Albumin 2.6 Date/Time Procedure Status Source Growth 10/11/16 21:20 - Final Complete Stool Stool NO ENTERIC PATHOGENS DETECTED BY PCR... 10/11/16 15:15 Urine Culture - Preliminary Resulted Urine Clean Catch IMMATURE GROWTH - REINCUBATE Physical Exam HEENT: Pupils round and reactive to light; normocephalic; atraumatic; no jaundice. Throat is clear. NECK: Neck is supple, no JVD, no lymphadenopathy. CHEST: Chest is clear to auscultation and percussion. CARDIAC: Regular rate and rhythm with no murmur gallop or rubs. ABDOMEN: Soft, nondistended, non tendera; no hepatosplenomegaly; bowel sounds are present in all four quadrants. EXTREMITIES: No clubbing, cyanosis, or edema. SKIN: Normal; no rash; no jaundice. 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 Assessment and Plan Plan ASSESSMENT GIB, Hemoccult positive stools. HH stable, 15.1/44.8 Abdominal pain with nausea, vomiting, diarrhea, melenic stool, HH stable. Heme positive stool. Never had EGD. Colonoscopy 3-[address] Jacob, removed 10 polyps, benign per patient. Protonix. Zofran. Abdomen/ Pelvis CT 10/11/16--Extensive fatty liver and slight atelectasis and/or infiltrate in right middle lobe and lingula Chronic obstructive pulmonary disease, smokes a 1/2 PPD. Chest X-Ray 10/11/16-- No acute cardiopulmonary disease. Abdomen/Pelvis CT as above. 10-12-16 EGD showed esophagitis Gastric ulcer in the antrum, colon showed multiple polyps and diverticulosis 10-13-16 doing better, tolerating diet, no GI bleed PLAN -regular diet -Continue Protonix -Monitor HH, transfuse as necessary -Anti emetics -Supportive care - RTC in 2 wks - ok to MI home from GI - EGD in 1 month -no NSAIDs Ana Rosa Barker MD Oct 13, 2016 09:22
[2016-10-13] MEDS ORDERED: PANT40TA3 PO (10:33)
--- NOTE | 2016-10-13 10:38 | HHI.PR ---
Subjective Remarks Patient seen this morning around 10 AM. Says she feels well. Denies any chest pain or shortness of breath. Denies any nausea or vomiting. Reports abdominal pain resolved. Feels like going home. Objective Vital Signs Date Time Temp Pulse Resp B/P Pulse Ox O2 Delivery O2 Flow Rate FiO2 10/13/16 07:56 96.8 56 20 130/69 96 10/13/16 00:00 96.5 65 16 101/64 98 10/12/16 20:00 96.2 82 20 154/95 97 10/12/16 16:00 97.6 68 18 133/70 97 10/12/16 12:00 97.2 64 18 128/72 95 122/75 I/O 10/12/16 10/12/16 10/12/16 10/13/16 10/13/16 10/13/16 07:00 15:00 23:00 07:00 15:00 23:00 Intake Total 2400 ml 610 ml 840 ml 240 ml Balance 2400 ml 610 ml 840 ml 240 ml Intake Oral 1800 ml 60 ml 840 ml 240 ml IV Total 600 ml Other 550 ml # Voids 6 1 1 2 # Bowel Movements 13 0 0 0 Result Diagram: 10/13/16 0444 10/13/16 0444 Objective Remarks GENERAL: patient lying in bed. Appears uncomfortable. Alert and oriented 3. SKIN: Warm and dry. HEAD: Normocephalic. EYES: No scleral icterus. No injection or drainage. NECK: Supple, trachea midline. No JVD CARDIOVASCULAR: Regular rate and rhythm without murmurs, gallops, or rubs. RESPIRATORY: Breath sounds equal bilaterally. No accessory muscle use. GASTROINTESTINAL: Abdomen nondistended. Nontender. No rebound or guarding. MUSCULOSKELETAL: No cyanosis, or edema. BACK: Nontender without obvious deformity. No CVA tenderness. A/P Assessment and Plan //Abdominal pain with nausea, vomiting, diarrhea, melenic stool Heme positive stool in emergency department, Continue monitor hemoglobin and hematocrit Transfuse if hemoglobin below 8.0 Continue Protonix Continue Zofran Gastroenterology following. EGD performed with gastric ulcer. Colonoscopy was performed with polyps. Pathology pending. Continue on PPI. Avoid NSAIDs. //Chronic obstructive pulmonary disease Patient still smokes a half a pack a cigarettes a day Chest x-rays clear, abdominal CT indicates right lung atelectasis Counseled on cessation O2 supplementation maintain O2 sats greater than 92% Duo nebs as needed Continue Incentive spirometry //Hypertension, hyperlipidemia Vital signs stable at this time Continue home medications //Hypokalemia. Acute. Replaced. Monitor //Hypothyroidism TSH wnl Continue replacement therapy //Hypernatremia. Sodium 146. Slow increase. Likely secondary to normal saline infusion. Encourage free water intake. Follow-up with primary care for repeat labs. //Hypokalemia. Replaced. Likely secondary to normal saline without potassium. Follow-up with primary care. //Chronic pain, fibromyalgia Continue pain control //DVT prevention Sequential compression devices Avoid chemical prophylaxis secondary to heme positive stool Discharge Planning Discharge home today. Biopsy results pending. Follow-up with gastroenterology , as well as primary care. Discussed with patient conveys understanding. Jhon Scott MD Oct 13, 2016 10:38
--- NOTE | 2016-10-13 10:39 | HHI.DS ---
Discharge Summary Admission Date Oct 11, 2016 at 12:08 Discharge Date: Oct 13, 2016 Admitting Diagnosis GI Bleed, Pneumonia (1) Abdominal pain ICD Code: R10.9 Diagnosis: Principal (2) Nausea & vomiting ICD Code: R11.2 Diagnosis: Principal (3) Diarrhea in adult patient ICD Code: R19.7 Diagnosis: Principal (4) Melena ICD Code: K92.1 Diagnosis: Principal Procedures EGD and colonoscopy. Gastric ulcer, as well as colon polyps were found. Pathology still pending. Brief History - From Admission Written by Paolo Hall, acting as scribe for Dr. Scott on 10/11/16 at 13: 23. 66-year-old female with known history of hypertension, hyperlipidemia , coronary artery disease, history myocardial infarction, chronic obstructive pulmonary disease, chronic tobacco use, fibromyalgia, chronic pain, tremors, hypothyroidism, history of breast cancer who presented to hospital because of abdominal pain, nausea, vomiting, diarrhea and dark stools. Patient states that her symptoms started 5 days ago when she started developing abdominal pain located in the epigastric region and radiating bilaterally to the bilateral upper right and left quadrants. She indicates that she is started developing some swelling in her left upper abdomen that progressively got worse and did not go away. She started experiencing nausea, vomiting and diarrhea with black water. The patient took 2 Pepto-Bismol tablets that day and she did not improve. She states that every time that she drink anything or try to eat anything she had nausea vomiting. Every time she drinks something it come right back up. She denies any dysphagia, globus sensation or difficulty swallowing. Patient denies any recent antibiotic use, sick exposures. The patient does have history of fibromyalgia and chronic pain in which she indicates that she has been able to take her pain medication on a regular basis. The pain medication has not made her abdominal pain subsided. Approximately 34 months ago she did go to Dr. Jacob and had colonoscopy done where they removed approximately 10 polyps. She goes every 2 years for polypectomies. Patient does take aspirin on a daily basis. Patient was brought here by her family, she states that she really did not want to come to the hospital. However patient did have Hemoccult-positive stool and is indicated by family at the patient was very weak and was having difficulty ambulating. Because of those reasons it was recommended by the ER physician the patient be observed in the hospital for further recommendations management. CBC/BMP: 10/13/16 0444 10/13/16 0444 Significant Findings Laboratory Tests Test 10/11/16 10/11/16 10/12/16 10/13/16 10:35 15:15 05:30 04:44 Neutrophils (%) (Auto) 78.6 % (16.0-70.0) Neutrophils # (Auto) 8.5 TH/MM3 (1.8-7.7) Potassium Level 3.3 MEQ/L 3.2 MEQ/L 3.4 MEQ/L (3.5-5.1) (3.5-5.1) (3.5-5.1) Estimat Glomerular Filtration 71 ML/MIN (>89) 79 ML/MIN (>89) 78 ML/MIN (>89) Rate Random Glucose 122 MG/DL (74-106) Troponin I LESS THAN 0.02 NG/ML (0.02-0.05) Urine Turbidity MOD (CLEAR) Urine Squamous Epithelial 6-8 /hpf (0-5) Cells Urine Bacteria MOD /hpf (NONE) Red Blood Count 3.98 MIL/MM3 3.83 MIL/MM3 (4.00-5.30) (4.00-5.30) Platelet Count 149 TH/MM3 (150-450) Monocytes (%) (Auto) 9.1 % (0.0-8.0) 9.4 % (0.0-8.0) Chloride Level 108 MEQ/L 115 MEQ/L (98-107) (98-107) Calcium Level 7.9 MG/DL 7.9 MG/DL (8.5-10.1) (8.5-10.1) Total Protein 6.0 GM/DL (6.4-8.2) Albumin 3.0 GM/DL 2.6 GM/DL (3.4-5.0) (3.4-5.0) Sodium Level 146 MEQ/L (136-145) Imaging Last Impressions Chest X-Ray 10/11/16 1012 Signed Impressions: Service Date/Time: Tuesday, October 11, 2016 10:22 - CONCLUSION: No acute cardiopulmonary disease. Emanuel Garcia MD Abdomen/Pelvis CT 10/11/16 1012 Signed Impressions: Service Date/Time: Tuesday, October 11, 2016 10:44 - CONCLUSION: Extensive fatty liver and slight atelectasis and/or infiltrate in right middle lobe and lingula . Emanuel Garcia MD Hospital Course Admitted with nausea, vomiting, diarrhea, melanotic stools with weakness. She underwent EGD and colonoscopy which showed gastric ulcer and colon polyps. Please see report. Pathology is still pending. She will need to avoid NSAIDs. Started on PPI. Follow-up with gastroenterology as outpatient. She did have hypokalemia, as well as hypernatremia, likely secondary to normal saline. She will need follow-up with primary care as outpatient to check labs. Patient conveys understanding. Nausea, vomiting, abdominal pain improved, and patient not requiring pain medication at discharge. For problem-based summary from most recent progress note, please see below. //Abdominal pain with nausea, vomiting, diarrhea, melenic stool Heme positive stool in emergency department, Continue monitor hemoglobin and hematocrit Transfuse if hemoglobin below 8.0 Continue Protonix Continue Zofran Gastroenterology following. EGD performed with gastric ulcer. Colonoscopy was performed with polyps. Pathology pending. Continue on PPI. Avoid NSAIDs. //Chronic obstructive pulmonary disease Patient still smokes a half a pack a cigarettes a day Chest x-rays clear, abdominal CT indicates right lung atelectasis Counseled on cessation O2 supplementation maintain O2 sats greater than 92% Duo nebs as needed Continue Incentive spirometry //Hypertension, hyperlipidemia Vital signs stable at this time Continue home medications //Hypokalemia. Acute. Replaced. Monitor //Hypothyroidism TSH wnl Continue replacement therapy //Hypernatremia. Sodium 146. Slow increase. Likely secondary to normal saline infusion. Encourage free water intake. Follow-up with primary care for repeat labs. //Hypokalemia. Replaced. Likely secondary to normal saline without potassium. Follow-up with primary care. //Chronic pain, fibromyalgia Continue pain control //DVT prevention Sequential compression devices Avoid chemical prophylaxis secondary to heme positive stool Discharge Planning Discharge home today. Biopsy results pending. Follow-up with gastroenterology , as well as primary care. Discussed with patient conveys understanding. Pt Condition on Discharge: Good Discharge Disposition: Discharge Home Discharge Time: > 30 minutes Discharge Instructions DIET: Follow Instructions for: Heart Healthy Diet Activities you can perform: Regular-No Restrictions Follow up Referrals: Gastroenterology - 1 Week with Ingris Thomas MD PCP Follow-up - 1 Week New Medications: Pantoprazole (Pantoprazole) 40 Mg Tab 40 MG PO BID Reflux #30 Ref 0 TAB Continued Medications: Citalopram (Citalopram) 20 Mg Tab 20 MG PO DAILY Control Depression #30 Ref 0 TAB Cyclobenzaprine (Flexeril) 10 Mg Tab 10 MG PO BID Muscle Spasm #90 Ref 0 TAB Ezetimibe (Zetia) 10 Mg Tab 10 MG PO DAILY #30 Ref 0 TAB Levothyroxine (Levothyroxine) 88 Mcg Tab 88 MCG PO DAILY Thyroid #30 Ref 0 TAB Oxycodone-Acetaminophen (Oxycodone-Acetaminophen) 10-325 mg Tab 1 TAB PO Q6H PRN PAIN Ref 0 TAB Promethazine (Promethazine) 12.5 Mg Tab 10 MG PO Q6H PRN NAUSEA OR VOMITING Ref 0 TAB Propranolol (Propranolol) 40 Mg Tab 40 MG PO Q12HR #60 Ref 0 TAB Simvastatin (Zocor) 40 Mg Tab 40 MG PO DAILY Cholesterol Management #30 Ref 0 TAB Trazodone (Trazodone) 50 Mg Tab 50 MG PO HS Control Depression #30 Ref 0 TAB Jhon Scott MD Oct 13, 2016 10:39
[2016-10-13] MEDS: DOCUSATE SODIUM 50 MG/SENNA 8.6 MG TAB PO SCH (11:05)
[2016-10-13] MEDS: CITALOPRAM HYDROBROMIDE 20 MG TAB PO SCH (11:06)
[2016-10-13] MEDS: PRAVASTATIN SOD 40 MG TAB PO SCH (11:06)
== END 2016-10-13 11:28 | disposition home or self-care (01) ==
LOC: PHED 09:52 → PHEDA 12:08 → PH3B 13:05
PROVIDERS: ADMIT Internal Medicine; ATTEND Internal Medicine
DX: K92.1 Melena (principal); Z86.010 Personal history of colon polyps; K52.9 Noninfective gastroenteritis and colitis, unspecified; D12.4 Benign neoplasm of descending colon; D12.5 Benign neoplasm of sigmoid colon; K57.90 Diverticulosis of intestine, part unspecified, without perforation or abscess without bleeding; K25.3 Acute gastric ulcer without hemorrhage or perforation; K20.9 Esophagitis, unspecified; J18.9 Pneumonia, unspecified organism; I10 Essential (primary) hypertension; E78.5 Hyperlipidemia, unspecified; I25.10 Atherosclerotic heart disease of native coronary artery without angina pectoris; J44.9 Chronic obstructive pulmonary disease, unspecified; F17.210 Nicotine dependence, cigarettes, uncomplicated; E03.9 Hypothyroidism, unspecified; I25.2 Old myocardial infarction; E87.6 Hypokalemia; F32.9 Major depressive disorder, single episode, unspecified; F41.9 Anxiety disorder, unspecified; E87.0 Hyperosmolality and hypernatremia; G89.29 Other chronic pain; M79.7 Fibromyalgia; Z85.3 Personal history of malignant neoplasm of breast; Z79.899 Other long term (current) drug therapy; Z71.6 Tobacco abuse counseling; Z79.82 Long term (current) use of aspirin; Z86.73 Personal history of transient ischemic attack (TIA), and cerebral infarction without residual deficits; K29.70 Gastritis, unspecified, without bleeding; K22.9 Disease of esophagus, unspecified; K64.8 Other hemorrhoids; R94.31 Abnormal electrocardiogram [ECG] [EKG]
CPT/HCPCS: 00740; 00810; 43239; 45380; 45385; 71010; 74176; 80053; 80069; 81001; 82550; 83605; 83690; 83735; 84443; 84484; 85018; 85025; 85610; 85730; 86850; 86900; 86901; 87086; 87493; 87506; 87641; 88305; 88312; 93005; 94150; 96365; 96368; 96375; 97110; 97116; 97162; 99285; C9113; G0378; G8987; G8988; J1170; J1956; J2405; J3475; J7030